=== PATIENT | female | born 1965 | race Native Hawaiian/Other Pacific Islander ===

== ENCOUNTER 2016-09-12 14:04 | Outpatient (CLI) | payer OTHER ==
[~2016-09-12 14:04] MED LIST: ZESTRIL40 MG PO
== END 2016-09-12 19:37 | disposition home or self-care (01) ==
LOC: MRI 14:04
DX: M54.2 Cervicalgia (principal)

== ENCOUNTER 2018-12-19 12:18 | Outpatient (CLI) | payer OTHER ==
[2018-12-19 13:12] LABS: PLATELET COUNT 285 K/uL (152-353)
[2018-12-19 13:39] LABS: POTASSIUM 4.2 mmol/L (3.6-5.2)
== END 2018-12-19 23:46 | disposition home or self-care (01) ==
LOC: LABW 12:18
PROVIDERS: Family Medicine
DX: I10 Essential (primary) hypertension (principal); E78.2 Mixed hyperlipidemia; M25.571 Pain in right ankle and joints of right foot; M25.572 Pain in left ankle and joints of left foot; R53.83 Other fatigue; E55.9 Vitamin D deficiency, unspecified; E53.8 Deficiency of other specified B group vitamins
CPT/HCPCS: 36415; 80053; 80061; 81000; 82306; 82607; 84443; 84550; 85027; 85651; 86038; 86140

== ENCOUNTER 2018-12-26 12:54 | Outpatient (CLI) | payer OTHER | END 2018-12-26 23:40 | disposition home or self-care (01) | LOC: RESP 12:54 | DX: I10 Essential (primary) hypertension (principal) | CPT/HCPCS: 93306 ==

== ENCOUNTER 2020-10-06 05:15 | Emergency (ER) | payer OTHER ==
[~2020-10-06] VITALS: Ht 162.6 cm; Wt 113.4 kg
[2020-10-06 06:10] VITALS: BP 120/88; TEMP 98.2
== END 2020-10-06 06:11 | disposition home or self-care (01) ==
LOC: ED 05:15
DX: K04.7 Periapical abscess without sinus (principal)
CPT/HCPCS: 99282; 99283

== ENCOUNTER 2021-03-27 11:49 | Emergency (ER) | payer OTHER ==
[~2021-03-27] VITALS: Ht 162.6 cm; Wt 113.4 kg
[2021-03-27 12:06] VITALS: TEMP 98.9
[2021-03-27 13:12] VITALS: BP 136/99
== END 2021-03-27 13:12 | disposition home or self-care (01) ==
LOC: ED 11:49
DX: B02.9 Zoster without complications (principal); I10 Essential (primary) hypertension; E66.8 Other obesity
CPT/HCPCS: 99283

== ENCOUNTER 2022-07-13 13:00 | Outpatient (CLI) | payer OTHER | END 2022-07-13 19:18 | disposition home or self-care (01) | LOC: RAD 13:00 | PROVIDERS: ATTEND Nurse Practitioner Family | DX: J20.8 Acute bronchitis due to other specified organisms (principal) ==

== ENCOUNTER 2023-02-14 06:02 | Emergency (ER) | payer OTHER ==
[~2023-02-14] VITALS: Ht 162.6 cm; Wt 77.1 kg
[2023-02-14 06:05] VITALS: TEMP 98.6
[2023-02-14 06:32] LABS: PLATELET COUNT 288 K/uL (152-353)
[2023-02-14 06:57] LABS: POTASSIUM 6.3 mmol/L (3.6-5.2)
[2023-02-14 09:50] VITALS: BP 135/85
== END 2023-02-14 09:50 | disposition short-term general hospital (02) ==
LOC: ED 06:02
PROVIDERS: Family Medicine
DX: I50.9 Heart failure, unspecified (principal); J18.9 Pneumonia, unspecified organism; R07.9 Chest pain, unspecified; N18.9 Chronic kidney disease, unspecified
CPT/HCPCS: 36415; 80053; 83690; 84484; 85027; 93005; 96365; 96375; 99284; J0696; J2270; J2405

== ENCOUNTER 2023-02-23 02:16 | Emergency (ER) | payer OTHER ==
[~2023-02-23] VITALS: Ht 162.6 cm; Wt 77.1 kg
[2023-02-23 05:50] VITALS: BP 103/68; TEMP 97.6
== END 2023-02-23 06:40 | disposition home or self-care (01) ==
LOC: ED 02:16
DX: U07.1 COVID-19 (principal); R51.9 Headache, unspecified
CPT/HCPCS: 96372; 99283; J1100; J1170; J1940